=== PATIENT | female | born 1965 | race Two or more races ===

== ENCOUNTER 2017-01-22 15:45 | Emergency (ER) | payer MEDICAID ==
[~2017-01-22] VITALS: Ht 162.6 cm; Wt 122.5 kg
[~2017-01-22 15:45] MED LIST: ACYCLOVIR400 MG ORAL; ASPIRIN81 M3 PO; AUGMENTIN 875-1 EAC1 ORAL; HYDROCHLOROTHIA25 MG ORAL; LIPITOR40 MG ORAL; METFORMIN HCL500 M1 ORAL; NORVASC5 MG ORAL; PREDNISONE10 M2 PO
[2017-01-22 16:33] VITALS: BP 127/75
[2017-01-22 17:53] VITALS: BP 140/74
--- NOTE | 2017-01-22 22:06 | Emergency Room Report ---
History of Present Illness General Chief Complaint: General Complaint Source: Patient Present Illness HPI 51-year-old female presents to ED for evaluation. Patient is here for a "checkup". Patient states she was discharged from this hospital. Was told to have a followup appointment one week after discharge. So she came to ER. Patient states she's having some pain and swelling to the left side of her face. Unchanged since discharge. Pain is a 5 at 10, sharp, nonradiating. No other aggravating relieving factors. Patient was seen by myself in ER on last visit. Patient was admitted for a possible stroke. Patient was admitted to Dr. Abdul. Denies any other associated symptoms Allergies: Coded Allergies: No Known Allergies (Unverified , 01/11/17) Patient History Past Medical History: HTN, CVA/TIA Past Surgical History: none Pertinent Family History: none Social History: Denies: alcohol use, drug use, smoking Now: No Immunizations: UTD Reviewed Nursing Documentation: PMH: Agreed, PSxH: Agreed Nursing Documentation-PMH Past Medical History: No History, Except For Hx Hypertension: Yes Hx Cerebrovascular Accident: Yes Review of Systems All Other Systems: negative except mentioned in HPI Physical Exam Vital Signs Date Time Temp Pulse Resp B/P Pulse Ox O2 Delivery O2 Flow Rate FiO2 01/22/17 15:53 97.9 84 16 135/77 95 Room Air Sp02 EP Interpretation: reviewed, normal General Appearance: no apparent distress, alert, GCS 15, non-toxic, obese Head: normocephalic, atraumatic Eyes: bilateral eye PERRL, bilateral eye normal inspection ENT: hearing grossly normal, normal pharynx, no angioedema, normal voice Neck: full range of motion, supple/symm/no masses Respiratory: chest non-tender, lungs clear, normal breath sounds, speaking full sentences Cardiovascular #1: regular rate, rhythm, no edema Cardiovascular #2: 2+ carotid (R), 2+ carotid (L), 2+ radial (R), 2+ radial (L) , 2+ dorsalis pedis (R), 2+ dorsalis pedis (L) Gastrointestinal: normal bowel sounds, non tender, soft, non-distended, no guarding, no rebound Rectal: deferred Genitourinary: normal inspection, no CVA tenderness Musculoskeletal: back normal, gait/station normal, normal range of motion, non- tender, calf tenderness Neurologic: alert, oriented x3, responsive, motor strength/tone normal, sensory intact, speech normal, facial droop - L sided Psychiatric: judgement/insight normal, memory normal, mood/affect normal, no suicidal/homicidal ideation Reflexes: 3+ bicep (R), 3+ bicep (L), 3+ tricep (R), 3+ tricep (L), 3+ knee (R) , 3+ knee (L) Skin: normal color, no rash, warm/dry, well hydrated Lymphatic: no adenopathy Medical Decision Making Diagnostic Impression: Primary Impression: Burns's palsy ER Course 51-year-old female presents to ED for check up. Discharge from hospital last week. c/o of left facial pain and swelling Differential-bells palsy, CVA, TIA Patient placed on stretcher. After initial history physical exam reveals an obese female in no acute distress. There is some left-sided facial droop. No slurred speech. Remainder of physical exam unremarkable. No focal neurological deficits. I reviewed EMR. On last visit patient had multiple consultations including neurology. Stroke was effectively ruled out with MRI. Patient diagnosed with Burns's palsy and subsequent discharged on medications She states she is compliant with the medications. States her symptoms are unchanged since discharge. She was asked by admitting physician Dr. Abdul to followup in his office one week after discharge. Patient did not understand that ,she came back to the ER for her checkup Case discussed with Dr. Abdul; he confirmed that patient was to followup in his office. I do not believe patient requires any further workup at this time. Diagnoses-bells palsy Stable and discharged to home. Continue medications as prescribed. Followup with Dr. Abdul. Return to ED if symptoms recur or worsen Last Vital Signs Date Time Temp Pulse Resp B/P Pulse Ox O2 Delivery O2 Flow Rate FiO2 01/22/17 17:53 68 17 140/74 98 Room Air 01/22/17 16:33 97.9 Status: improved Disposition: HOME, SELF-CARE Condition: Stable Referrals: NOT CHOSEN IPA/,REFERRING (PCP) Miriam Abdul MD Patient Instructions: Burns Palsy RAISA DESAI M.D. January 22, 2017 22:06
== END 2017-01-22 17:00 | disposition home or self-care (01) ==
LOC: EDUNIT# 15:45 → EMR 16:50
DX: G51.0 Bell's palsy (principal); Z86.73 Personal history of transient ischemic attack (TIA), and cerebral infarction without residual deficits; I10 Essential (primary) hypertension
CPT/HCPCS: 99282